=== PATIENT | female | born 1995 | race Two or more races ===

== ENCOUNTER → 2017-10-31 | Outpatient (CLI) | payer MEDICAID ==
[~2017-10-31] MED LIST: PREN-153 OR
[2017-10-31 16:02] LABS: Basophils # (auto) 0 uL; Basophils % (auto) 0.3 % (0.0-2.0); Eosinophils # (auto) 0.1 uL; Eosinophils % (auto) 1.2 % (0.0-7.0); Hematocrit 38.7 % (36.0-46.0); Hemoglobin 12.8 g/dL (12.2-16.2); Lymphocytes # (auto) 1.1 uL; Lymphocytes % (auto) 10.7 % (10.0-50.0); Mean Corpuscular Hemoglobin 29.2 pg (28.0-32.0); Mean Corpuscular Hgb Conc. 33.1 g/dL (32.0-36.0); Mean Corpuscular Volume 88.2 fL (80.0-100.0); Monocytes # (auto) 0.8 uL; Monocytes % (auto) 7.9 % (0.0-12.0); Neutrophils # (auto) 8.3 uL; Neutrophils % (auto) 79.9 % (37.0-80.0); Nucleated Red Blood Cells % 0.1 %; Platelet Count (auto) 252 10^3/uL (140-450); Red Blood Cells 4.38 10^6/uL (4.0-5.20); White Blood Cell 10.4 10^3/uL (4.4-10.8)
[2017-10-31 17:15] LABS: Alcohol, Urine < 3.0 mg/dL (0-5); Amphetamine Screen, Urine NEGATIVE (NEGATIVE); Barbiturate Scree,Urine NEGATIVE (NEGATIVE); Benzodiazephine Screen, Urine NEGATIVE (NEGATIVE); Cannabinoid Screen, Urine NEGATIVE (NEGATIVE); Cocaine Screen, Urine NEGATIVE (NEGATIVE); Opiate Scree,Urine NEGATIVE (NEGATIVE); Phencyclidine Screen, Urine NEGATIVE (NEGATIVE)
== END | disposition home or self-care (01) ==
LOC: LAB 15:09
PROVIDERS: ATTEND Obstetrics & Gynecology
DX: Z34.80 Encounter for supervision of other normal pregnancy, unspecified trimester (principal); Z3A.00 Weeks of gestation of pregnancy not specified
CPT/HCPCS: 36415; 80307; 84702; 85025; 86703; 86762; 86850; 86900; 86901; 87086; 87340

== ENCOUNTER → 2017-11-02 | Outpatient (CLI) | payer MEDICAID | END | disposition home or self-care (01) | LOC: LAB 07:52 | PROVIDERS: ATTEND Obstetrics & Gynecology | DX: Z34.80 Encounter for supervision of other normal pregnancy, unspecified trimester (principal); Z3A.00 Weeks of gestation of pregnancy not specified | CPT/HCPCS: 82951 ==

== ENCOUNTER 2017-11-14 04:17 | Inpatient (IN) | payer MEDICAID ==
[2017-11-14] VITALS (9 sets, daily range): BP systolic 104–130; BP diastolic 68–84
[~2017-11-14] VITALS: Ht 180.3 cm; Wt 72.6 kg
[2017-11-14 04:45] LABS: Urine WBC None Seen /hpf (0 - 5)
[2017-11-14 04:54] LABS: Urine Bacteria FEW /hpf (None Seen); Urine Blood Negative /uL (Negative); Urine Specific Gravity 1.012 (1.001-1.035)
[2017-11-14] MEDS ORDERED: PREN-153 OR (05:21)
[2017-11-14 05:32] LABS: Basophils # (auto) 0 uL; Basophils % (auto) 0.4 % (0.0-2.0); Eosinophils # (auto) 0 uL; Eosinophils % (auto) 0.3 % (0.0-7.0); Hematocrit 34.1 % (36.0-46.0); Hemoglobin 11.4 g/dL (12.2-16.2); Lymphocytes # (auto) 1.2 uL; Mean Corpuscular Hemoglobin 29.1 pg (28.0-32.0); Mean Corpuscular Hgb Conc. 33.5 g/dL (32.0-36.0); Monocytes # (auto) 0.7 uL; Monocytes % (auto) 7.6 % (0.0-12.0); Neutrophils # (auto) 7.8 uL; Neutrophils % (auto) 79.7 % (37.0-80.0); Nucleated Red Blood Cells % 0.1 %; Platelet Count (auto) 231 10^3/uL (140-450); Red Blood Cells 3.93 10^6/uL (4.0-5.20); Red Cell Distribution Width 14.2 % (11.8-14.3); White Blood Cell 9.8 10^3/uL (4.4-10.8)
[2017-11-14 05:44] LABS: INR 0.86 (0.9-1.15); Partial Thromboplastin Time 26.4 sec (22.64-33.71); Prothrombin Time 9.4 sec (9.37-12.3)
[2017-11-14 05:48] LABS: Albumin 2.7 g/dL (3.4-5.0); BUN/Creatinine Ratio 23.5; Calcium 8.4 mg/dL (8.5-10.1); Potassium 3.7 mmol/L (3.5-5.1)
[2017-11-14 05:50] LABS: Bilirubin, Total 0.2 mg/dL (0.2-1.0); Total Protein 6.8 g/dL (6.4-8.2)
[2017-11-14] MEDS: LACTATED RINGER'S 1,000 ML IV SCH ×2 (06:23→20:20)
[2017-11-14] MEDS ORDERED: TETRACAINE 1% INJ 2 ML VIAL IJ ONE (07:21)
[2017-11-14] MEDS ORDERED: MORPHINE SULF(PF) 0.5MG/ML 10ML VIAL ONE (07:22)
[2017-11-14] MEDS ORDERED: fentaNYL CITRATE 100 MCG/2 ML VL ONE (07:22)
[2017-11-14] MEDS ORDERED: MIDAZOLAM HCL 1MG/1ML-2 ML VIAL ONE ×2 (07:23→08:11)
[2017-11-14] MEDS ORDERED: LACT. RINGERS/OXYTOCIN 20UNITS 1,000 ML IV SCH (08:04)
[2017-11-14] MEDS ORDERED: OXYTOCIN 10 UNIT/ML 10ML VIAL ONE (08:10)
[2017-11-14] MEDS ORDERED: ceFAZolin 1GM VL ONE (08:10)
[2017-11-14] MEDS ORDERED: KETOROLAC TROMETH 30 MG/ML 1ML VIAL ONE (08:11)
[2017-11-14] MEDS ORDERED: diphenhdrAMINE HCL 50 MG/1 ML VL IV PRN (08:15)
[2017-11-14] MEDS ORDERED: KETOROLAC TROMETH 30 MG/ML 1ML VIAL IV ONE (08:15)
[2017-11-14] MEDS ORDERED: MIDAZOLAM HCL 1MG/1ML-2 ML VIAL IV PRN (08:15)
[2017-11-14] MEDS ORDERED: LABETALOL HCL 5 MG/ML 4ML SYRINGE IV PRN (08:15)
[2017-11-14] MEDS ORDERED: HYDROmorphone HCL 2 MG/ML VL IV PRN (08:15)
[2017-11-14] MEDS ORDERED: ONDANSETRON HCL 4 MG/2 ML VIAL IV PRN ×2 (08:15)
[2017-11-14] MEDS ORDERED: MORPHINE SULFATE 4 MG/ML SYR/VIAL IV PRN (08:15)
[2017-11-14] MEDS ORDERED: NALBUPHINE HCL 10 MG/1ml INJECTION SUBCUT ONE (08:15)
[2017-11-14] MEDS ORDERED: MORPHINE SULF INJ 2 MG/ML SYRINGE 1ML IV PRN (08:15)
[2017-11-14] MEDS ORDERED: KETOROLAC TROMETH 30 MG/ML 1ML VIAL IV PRN (08:15)
[2017-11-14] MEDS ORDERED: ePHEDrine SULFATE 50 MG/ML AMP IV PRN (08:15)
[2017-11-14] MEDS ORDERED: NALOXONE HCL 0.4 MG/ML VIAL IV PRN (08:15)
[2017-11-14] MEDS ORDERED: DEXAMETHASONE SOD PHOS 10MG/1ML VIAL INJ IV PRN (08:15)
[2017-11-14] MEDS ORDERED: ceFAZolin 1GM/50ML 50 ML IV SCH (08:15)
[2017-11-14] MEDS ORDERED: MORPHINE SULFATE 4 MG/ML SYR/VIAL IV ONE (10:00)
[2017-11-14] MEDS: ceFAZolin 1GM/50ML 50 ML IV SCH ×2 (15:51→23:38)
[2017-11-14 19:45] LABS: Basophils # (auto) 0.1 uL; Basophils % (auto) 0.9 % (0.0-2.0); Eosinophils # (auto) 0.1 uL; Eosinophils % (auto) 0.8 % (0.0-7.0); Hematocrit 34.7 % (36.0-46.0); Hemoglobin 11.6 g/dL (12.2-16.2); Lymphocytes # (auto) 1.1 uL; Mean Corpuscular Hemoglobin 29.3 pg (28.0-32.0); Mean Corpuscular Hgb Conc. 33.3 g/dL (32.0-36.0); Mean Corpuscular Volume 87.9 fL (80.0-100.0); Monocytes # (auto) 0.9 uL; Monocytes % (auto) 8.1 % (0.0-12.0); Neutrophils # (auto) 9.1 uL; Neutrophils % (auto) 80.2 % (37.0-80.0); Nucleated Red Blood Cells % 0.1 %; Platelet Count (auto) 207 10^3/uL (140-450); Red Blood Cells 3.95 10^6/uL (4.0-5.20); Red Cell Distribution Width 14.5 % (11.8-14.3); White Blood Cell 11.4 10^3/uL (4.4-10.8)
[2017-11-14] MEDS: KETOROLAC TROMETH 30 MG/ML 1ML VIAL IV PRN (22:41)
[2017-11-15 03:00] VITALS: BP 109/67
[2017-11-15] MEDS: LACTATED RINGER'S 1,000 ML IV SCH (04:20)
[2017-11-15] MEDS: KETOROLAC TROMETH 30 MG/ML 1ML VIAL IV PRN (05:28)
[2017-11-15 06:35] VITALS: BP 110/72
[2017-11-15 07:01] LABS: Basophils # (auto) 0 uL; Basophils % (auto) 0.3 % (0.0-2.0); Eosinophils # (auto) 0.1 uL; Eosinophils % (auto) 0.8 % (0.0-7.0); Hematocrit 35.9 % (36.0-46.0); Hemoglobin 11.9 g/dL (12.2-16.2); Lymphocytes # (auto) 0.8 uL; Lymphocytes % (auto) 6.1 % (10.0-50.0); Mean Corpuscular Hemoglobin 29.2 pg (28.0-32.0); Mean Corpuscular Hgb Conc. 33.2 g/dL (32.0-36.0); Mean Corpuscular Volume 87.9 fL (80.0-100.0); Monocytes # (auto) 0.9 uL; Monocytes % (auto) 7.1 % (0.0-12.0); Neutrophils # (auto) 10.6 uL; Neutrophils % (auto) 85.7 % (37.0-80.0); Platelet Count (auto) 217 10^3/uL (140-450); Red Blood Cells 4.08 10^6/uL (4.0-5.20); Red Cell Distribution Width 14.4 % (11.8-14.3); White Blood Cell 12.4 10^3/uL (4.4-10.8)
[2017-11-15] MEDS: ceFAZolin 1GM/50ML 50 ML IV SCH (08:20)
[2017-11-15] MEDS ORDERED: TETANUS-DIPTH-ACEL PERTUSSIS 0.5ML SYRG IM ONE (09:00)
[2017-11-15] MEDS ORDERED: DOCUSATE SOD 100 MG CAP PO ONE (10:01)
[2017-11-15] MEDS ORDERED: HYDROcodone-ACET 5/325MG TAB PO PRN (10:15)
[2017-11-15] MEDS: IBUPROFEN 800 MG TAB PO PRN ×2 (10:30→18:17)
[2017-11-15] MEDS ORDERED: INFLUENZA QUAD 2017-2018 0.5 ML SYRG IM ONE ×2 (10:39→19:00)
[2017-11-15 11:30] VITALS: BP 107/70
[2017-11-15] MEDS: SIMETHICONE 80 MG CHEWABLE TABLET PO SCH ×3 (11:39→21:36)
[2017-11-15 15:30] VITALS: BP 112/62
[2017-11-15 19:00] VITALS: BP 126/68
[2017-11-15 23:00] VITALS: BP 110/71
[2017-11-16] MEDS: IBUPROFEN 800 MG TAB PO PRN ×2 (02:23→10:47)
[2017-11-16 03:00] VITALS: BP 110/68
[2017-11-16] MEDS: SIMETHICONE 80 MG CHEWABLE TABLET PO SCH ×3 (05:31→17:23)
[2017-11-16 07:00] VITALS: BP 108/64
[2017-11-16 10:53] VITALS: BP 107/70
[2017-11-16 15:00] VITALS: BP 121/64
[2017-11-16 19:30] VITALS: BP 126/70
[2017-11-16] MEDS: HYDROcodone-ACET 5/325MG TAB PO PRN (19:50)
[2017-11-16 22:48] VITALS: BP 116/68
[2017-11-17 03:30] VITALS: BP 97/65
[2017-11-17] MEDS: HYDROcodone-ACET 5/325MG TAB PO PRN ×2 (03:40→09:42)
[2017-11-17 07:03] VITALS: BP 127/73
[2017-11-17] MEDS ORDERED: WITCH HAZEL-GLYCERIN PAD TOP ONE (09:56)
[2017-11-17] MEDS: SIMETHICONE 80 MG CHEWABLE TABLET PO SCH (09:57)
== END 2017-11-17 10:20 | disposition home or self-care (01) | DRG 540 ==
LOC: LDRP 04:17
PROVIDERS: ADMIT Specialist; ATTEND Specialist
PROC: 10D00Z1 Extraction of Products of Conception, Low, Open Approach (ICD-10-PCS; principal; 2017-11-14 07:10)
DX: O34.211 Maternal care for low transverse scar from previous cesarean delivery (principal); Z23 Encounter for immunization; Z37.0 Single live birth; Z3A.39 39 weeks gestation of pregnancy
CPT/HCPCS: 36415; 51702; 59025; 80053; 81001; 85025; 85610; 85730; 86850; 86870; 86900; 86901; 90384; 90715; 94762; 96361; 96365; 96366; 96372; 96374; 96375; J0690; J1885; J2250; J2590